=== PATIENT | male | born 1940 | race Caucasian/White ===

== ENCOUNTER 2016-07-30 17:04 | Observation (INO) | payer MEDICARE, OTHER ==
[~2016-07-30] VITALS: Ht 182.9 cm; Wt 86.0 kg
[~2016-07-30 17:04] MED LIST: ASPI81 PO; ATOR20TA42 PO; METO50TA PO; WARF6 PO
[2016-07-30 17:05] VITALS: BP 177/84; PULSE 78; RESP 20; TEMP 97.3; O2SAT 95
[2016-07-30] MEDS ORDERED: CO Q100C9 (17:26)
[2016-07-30] MEDS ORDERED: ASPI81CH CHEW (17:26)
[2016-07-30] MEDS ORDERED: PLAV75TA29 PO (17:26)
[2016-07-30] MEDS ORDERED: LIPI20TA PO (17:26)
[2016-07-30] MEDS ORDERED: TAMS5CAP PO (17:26)
[2016-07-30] MEDS ORDERED: RAMI10CA PO (17:26)
--- NOTE | 2016-07-30 18:02 | PD ---
HPI Chief Complaint: Medical Clearance Time Seen by Provider: 17:58 Travel History International Travel<30 days: No Contact w/Intl Traveler<30days: No Traveled to known affect area: No History of Present Illness HPI Patient is a 76-year-old male sent by his shipping hand to emergency department for evaluation for possible pacemaker placement patient is wearing a Holter monitor, per the report it showing a complete AV block. Patient has no chest pain, shortness of breath, headache, nausea, diaphoresis, abdominal pain. Patient states he feels well and was planning on going to the [facility] Patient's shipping hand is Dr. Pendleton, his primary doctor is Dr. Angus Cedeno. His past medical history significant for coronary artery disease, bypass surgery , atrial fibrillation, hypertension, TIA 2 weeks ago. PFSH Past Medical History Hx Anticoagulant Therapy: Yes Arthritis: Yes (MILD LOWER BACK) Blood Disorders: No Heart Rhythm Problems: Yes Cancer: No Cardiovascular Problems: Yes High Cholesterol: Yes Chest Pain: No Congestive Heart Failure: No Cerebrovascular Accident: Yes Endocrine: No Headaches: No Hypertension: Yes Immune Disorder: No Musculoskeletal: No Neurologic: No Psychiatric: No Respiratory: No Migraines: No Seizures: No Past Surgical History Abdominal Surgery: No Cardiac Surgery: No Ear Surgery: No Endocrine Surgery: No Eye Surgery: No Genitourinary Surgery: No Oral Surgery: No Thoracic Surgery: No Social History Alcohol Use: No Tobacco Use: No Substance Use: No Allergies-Medications (Allergen,Severity, Reaction): Coded Allergies: Celebrex (Verified Allergy, Severe, Rash, 07/30/16) Reported Meds & Prescriptions Reported Meds & Active Scripts Active Reported Co Q 10 (Coenzyme Q10 (Ubidecarenone)) 100 Mg Cap Flomax (Tamsulosin HCl) 0.4 Mg Cap 0.4 Mg PO HS Ramipril 10 Mg Cap 10 Mg PO DAILY Lipitor (Atorvastatin Calcium) 20 Mg Tab 20 Mg PO HS Aspirin 81 Mg Chew 81 Mg CHEW DAILY Plavix (Clopidogrel Bisulfate) 75 Mg Tab 75 Mg PO DAILY Review of Systems Except as stated in HPI: all other systems reviewed are Neg Physical Exam Narrative GENERAL: Well-developed, well-nourished, alert elderly gentleman. Resting comfortably in no acute distress. Holter monitor on. SKIN: Warm and dry. HEAD: Atraumatic. Normocephalic. EYES: Pupils equal and round. No scleral icterus. No injection or drainage. ENT: No nasal bleeding or discharge. Mucous membranes pink and moist. NECK: Trachea midline. No JVD. CARDIOVASCULAR: Regular rate and rhythm. No murmur appreciated. RESPIRATORY: No accessory muscle use. Clear to auscultation. Breath sounds equal bilaterally. GASTROINTESTINAL: Abdomen soft, non-tender, nondistended. Hepatic and splenic margins not palpable. MUSCULOSKELETAL: No obvious deformities. No clubbing. No cyanosis. No edema. NEUROLOGICAL: Awake and alert. No obvious cranial nerve deficits. Motor grossly within normal limits. Normal speech. PSYCHIATRIC: Appropriate mood and affect; insight and judgment normal. Data Data Last Documented VS Vital Signs Date Time Temp Pulse Resp B/P Pulse Ox O2 Delivery O2 Flow Rate FiO2 07/30/16 17:05 97.3 78 20 177/84 95 Room Air Orders Electrocardiogram (07/30/16 17:30) Ckmb (Isoenzyme) Profile (07/30/16 17:30) Complete Blood Count With Diff (07/30/16 17:30) Comprehensive Metabolic Panel (07/30/16 17:30) Magnesium (Mg) (07/30/16 17:30) Prothrombin Time / Inr (Pt) (07/30/16 17:30) Act Partial Throm Time (Ptt) (07/30/16 17:30) Troponin I (07/30/16 17:30) CKMB (07/30/16 17:44) CKMB% (07/30/16 17:44) Labs Laboratory Tests Test 07/30/16 17:44 White Blood Count 6.3 TH/MM3 Red Blood Count 3.88 MIL/MM3 Hemoglobin 12.2 GM/DL Hematocrit 36.0 % Mean Corpuscular Volume 92.8 FL Mean Corpuscular Hemoglobin 31.3 PG Mean Corpuscular Hemoglobin 33.8 % Concent Red Cell Distribution Width 14.1 % Platelet Count 125 TH/MM3 Mean Platelet Volume 9.5 FL Neutrophils (%) (Auto) 77.9 % Lymphocytes (%) (Auto) 10.4 % Monocytes (%) (Auto) 10.0 % Eosinophils (%) (Auto) 1.6 % Basophils (%) (Auto) 0.1 % Neutrophils # (Auto) 4.9 TH/MM3 Lymphocytes # (Auto) 0.7 TH/MM3 Monocytes # (Auto) 0.6 TH/MM3 Eosinophils # (Auto) 0.1 TH/MM3 Basophils # (Auto) 0.0 TH/MM3 CBC Comment DIFF FINAL Differential Comment Prothrombin Time 10.8 SEC Prothromb Time International 1.0 RATIO Ratio Activated Partial 22.3 SEC Thromboplast Time Sodium Level 138 MEQ/L Potassium Level 4.0 MEQ/L Chloride Level 105 MEQ/L Carbon Dioxide Level 25.0 MEQ/L Anion Gap 8 MEQ/L Blood Urea Nitrogen 16 MG/DL Creatinine 1.24 MG/DL Estimat Glomerular Filtration 57 ML/MIN Rate Random Glucose 104 MG/DL Calcium Level 8.4 MG/DL Magnesium Level 2.0 MG/DL Total Bilirubin 0.7 MG/DL Aspartate Amino Transf 11 U/L (AST/SGOT) Alanine Aminotransferase 19 U/L (ALT/SGPT) Alkaline Phosphatase 76 U/L Total Creatine Kinase 106 U/L Creatine Kinase MB 2.0 NG/ML Troponin I LESS THAN 0.02 NG/ML Total Protein 6.8 GM/DL Albumin 3.6 GM/DL MDM Medical Decision Making Medical Screen Exam Complete: Yes Emergency Medical Condition: Yes Interpretation(s) Vital Signs Date Time Temp Pulse Resp B/P Pulse Ox O2 Delivery O2 Flow Rate FiO2 07/30/16 17:05 97.3 78 20 177/84 95 Room Air Differential Diagnosis Cardiac arrhythmia versus electrolyte abnormality versus NSTEMI versus other Narrative Course Patient is a 76-year-old gentleman sent by his shipping hand to the emergency department after an arrhythmia was noted on Holter monitor. Labs and imaging ordered and pending. Workup initiated in triage. Care of patient will be transferred to provider when medical bed is available. Jessica French Jul 30, 2016 18:02
[2016-07-30 18:19] LABS: AUTOMATED NEUTROPHIL # 4.9 TH/MM3 (1.8-7.7); BASOPHIL % 0.1 % (0.0-2.0); EOSINOPHIL # 0.1 TH/MM3 (0-0.4); EOSINOPHIL % 1.6 % (0.0-4.0); HEMO FLAGS DIFF FINAL; LYMPH % 10.4 % (9.0-44.0); LYMPHOCYTE # 0.7 TH/MM3 (1.0-4.8); MEAN CELL VOLUME 92.8 FL (80.0-100.0); MEAN CORPUSCULAR HEMOGLOBIN 31.3 PG (27.0-34.0); MEAN CORPUSCULAR HGB CONC 33.8 % (32.0-36.0); NEUT % 77.9 % (16.0-70.0); PLATELET COUNT 125 TH/MM3 (150-450); RED BLOOD COUNT 3.88 MIL/MM3 (4.50-5.90); RED CELL DISTRIBUTION WIDTH 14.1 % (11.6-17.2); WHITE BLOOD COUNT 6.3 TH/MM3 (4.0-11.0)
[2016-07-30 18:43] LABS: ANION GAP 8 MEQ/L (5-15); AST (GOT) 11 U/L (15-37); BLOOD UREA NITROGEN 16 MG/DL (7-18); CHLORIDE 105 MEQ/L (98-107); GLOMERULAR FILTRATION RATE 57 ML/MIN (>89); SODIUM (NA) 138 MEQ/L (136-145)
[2016-07-30 18:48] LABS: ALKALINE PHOSPHATASE 76 U/L (45-117); ALT (GPT) 19 U/L (12-78); CREATINE KINASE 106 U/L (39-308); TOTAL BILIRUBIN ADULT 0.7 MG/DL (0.2-1.0)
[2016-07-30 18:51] LABS: APTT (PATIENT) 22.3 SEC (24.3-30.1); PROTHROMBIN TIME - PATIENT 10.8 SEC (9.8-11.6)
--- NOTE | 2016-07-30 20:12 | PD ---
Physical Exam Narrative The patient was initially evaluated in triage and brought back to a medical bed when he became available. See mid-level note for further details. Data Data Last Documented VS Vital Signs Date Time Temp Pulse Resp B/P Pulse Ox O2 Delivery O2 Flow Rate FiO2 07/30/16 17:05 97.3 78 20 177/84 95 Room Air Orders Electrocardiogram (07/30/16 17:30) Ckmb (Isoenzyme) Profile (07/30/16 17:30) Complete Blood Count With Diff (07/30/16 17:30) Comprehensive Metabolic Panel (07/30/16 17:30) Magnesium (Mg) (07/30/16 17:30) Prothrombin Time / Inr (Pt) (07/30/16 17:30) Act Partial Throm Time (Ptt) (07/30/16 17:30) Troponin I (07/30/16 17:30) CKMB (07/30/16 17:44) CKMB% (07/30/16 17:44) Labs Laboratory Tests Test 07/30/16 17:44 White Blood Count 6.3 TH/MM3 Red Blood Count 3.88 MIL/MM3 Hemoglobin 12.2 GM/DL Hematocrit 36.0 % Mean Corpuscular Volume 92.8 FL Mean Corpuscular Hemoglobin 31.3 PG Mean Corpuscular Hemoglobin 33.8 % Concent Red Cell Distribution Width 14.1 % Platelet Count 125 TH/MM3 Mean Platelet Volume 9.5 FL Neutrophils (%) (Auto) 77.9 % Lymphocytes (%) (Auto) 10.4 % Monocytes (%) (Auto) 10.0 % Eosinophils (%) (Auto) 1.6 % Basophils (%) (Auto) 0.1 % Neutrophils # (Auto) 4.9 TH/MM3 Lymphocytes # (Auto) 0.7 TH/MM3 Monocytes # (Auto) 0.6 TH/MM3 Eosinophils # (Auto) 0.1 TH/MM3 Basophils # (Auto) 0.0 TH/MM3 CBC Comment DIFF FINAL Differential Comment Prothrombin Time 10.8 SEC Prothromb Time International 1.0 RATIO Ratio Activated Partial 22.3 SEC Thromboplast Time Sodium Level 138 MEQ/L Potassium Level 4.0 MEQ/L Chloride Level 105 MEQ/L Carbon Dioxide Level 25.0 MEQ/L Anion Gap 8 MEQ/L Blood Urea Nitrogen 16 MG/DL Creatinine 1.24 MG/DL Estimat Glomerular Filtration 57 ML/MIN Rate Random Glucose 104 MG/DL Calcium Level 8.4 MG/DL Magnesium Level 2.0 MG/DL Total Bilirubin 0.7 MG/DL Aspartate Amino Transf 11 U/L (AST/SGOT) Alanine Aminotransferase 19 U/L (ALT/SGPT) Alkaline Phosphatase 76 U/L Total Creatine Kinase 106 U/L Creatine Kinase MB 2.0 NG/ML Troponin I LESS THAN 0.02 NG/ML Total Protein 6.8 GM/DL Albumin 3.6 GM/DL [facility] Supervised Visit with LIAM: Yes Narrative Course I, Dr. Alexandra, have reviewed the advance practice practitioner's documentation and am in agreement, met with the patient face to face, made the diagnosis, and the medical decision making was done by me. See her note for further details. Briefly this is a 76-year-old male who was sent in by his eeg tech for admission for possible pacemaker placement. The patient had a CVA/TIA a couple weeks ago with left-sided weakness/numbness. He was placed on a Holter monitor yesterday to evaluate for possible dysrhythmia. Apparently he had an event in the middle of the night that showed possible AV block. He was contacted by his eeg tech today to present to the hospital for admission. He is completely symptomatic. No chest pain or dyspnea. On physical exam he is awake and alert and resting comfortably. Heart has a regular rate and rhythm. EKG shows sinus rhythm with a rate of 70. Normal intervals. CBC is essentially unremarkable. CMP is unremarkable. Cardiac enzymes are negative. His eeg tech is Dr. Lazo. He will be admitted for overnight observation for telemetry monitoring and electrophysiology consultation. Diagnosis Primary Impression: Cardiac abnormality Admitting Information Admitting Physician Requests: Observation Dmitriy Alexanrda MD Jul 30, 2016 20:12
[2016-07-30] MEDS ORDERED: NALOXONE HCL 0.4 MG/ML AMP IV PRN (20:30)
[2016-07-30] MEDS ORDERED: SODIUM CHLORIDE 0.9% FLUSH 5 ML FLUSH FLUSH PRN (20:30)
[2016-07-30] MEDS: SODIUM CHLORIDE 0.9% FLUSH 5 ML FLUSH FLUSH SCH (21:00)
[2016-07-30 21:17] VITALS: BP 172/85; PULSE 84; RESP 18; O2SAT 98
[2016-07-30 23:35] VITALS: BP 140/78; PULSE 86; RESP 18; TEMP 97.9; O2SAT 94
--- NOTE | 2016-07-31 01:05 | HHI.HP ---
[facility] Service [facility] Primary Care Physician Angus Cedeno MD Admission Diagnosis possible dysrhythmia Diagnoses: (1) Cardiac abnormality (2) Arrhythmia (3) Thrombocytopenia (4) Anemia Chief Complaint: Abnormal heart rhythm noted on Holter monitor Travel History International Travel<30 Days: No Contact w/Intl Traveler <30 Da: No Traveled to Known Affected Are: No History of Present Illness Mr. Mattson is a 76 year old male patient of coater helper Dr. Ordaz who sent the patient here to the emergency department on 07/30/2016 for possible pacemaker placement. The patient has a history of coronary artery disease with bypass graft surgery, atrial fibrillation, hypertension, and TIA about 2 weeks ago who had a Holter monitor placed 24hrs ago that showed a complete AV block. He was in normal sinus rhythm in the emergency room. The patient reports he had a CVA treated at [facility] in [place] and in follow-up with his coater helper as an outpatient, he will have a Holter monitor placed to assess structural and functional abilities of the heart. The patient reports that the Holter monitor employees called the coater helper and the coater helper advised him to come to the hospital because of the rhythms seen. Since being in the hospital, he's had no cardiac rhythm problems. Of note, the patient does recall the leads from the Holter monitor falling off twice during the night when the arrhythmia was seen. The arrhythmia was seen overnight between 07/29 and 07/30/2016. . Review of Systems Except as stated in HPI: all other systems reviewed are Neg Past Family Social History Past Medical History Mild lower back arthritis Atrial fibrillation Hyperlipidemia CVA Hypertension . Past Surgical History CABG x 4 05/10/2010 [address]. Aranda Reported Medications Reported Meds & Active Scripts Active Reported Co Q 10 (Coenzyme Q10 (Ubidecarenone)) 100 Mg Cap Flomax (Tamsulosin HCl) 0.4 Mg Cap 0.4 Mg PO HS Ramipril 10 Mg Cap 10 Mg PO DAILY Lipitor (Atorvastatin Calcium) 20 Mg Tab 20 Mg PO HS Aspirin 81 Mg Chew 81 Mg CHEW DAILY Plavix (Clopidogrel Bisulfate) 75 Mg Tab 75 Mg PO DAILY . Allergies: Coded Allergies: Celebrex (Verified Allergy, Severe, Rash, 07/30/16) Active Ordered Medications Current Medications IV Flush (NS Flush) 2 ml UNSCH PRN FLUSH FLUSH AFTER USING IV ACCESS; Start 07/30/16 at 20:30 IV Flush (NS Flush) 2 ml BID FLUSH ; Start 07/30/16 at 21:00 Naloxone HCl (Narcan Inj) 0.4 mg UNSCH PRN IV SEE LABEL COMMENTS; Start at 20:30 . Family History CVA, hypertension in parents Social History Alcohol: social alcohol use Tobacco: denies Illicit Drugs: denies Physical Exam Vital Signs Vital Signs Date Time Temp Pulse Resp B/P Pulse Ox O2 Delivery O2 Flow Rate FiO2 07/30/16 23:35 97.9 86 18 140/78 94 07/30/16 21:17 84 18 172/85 98 Room Air 07/30/16 17:05 97.3 78 20 177/84 95 Room Air Physical Exam GENERAL: This is a well-nourished, well-developed patient, in no apparent distress. Very pleasant gentleman with his 2 daughters at the bedside. SKIN: No rashes, ecchymoses or lesions. Cool and dry. HEAD: Atraumatic. Normocephalic. EYES: No scleral icterus. No injection or drainage. ENT: Nose without bleeding, purulent drainage. NECK: Trachea midline. No JVD or lymphadenopathy. CARDIOVASCULAR: Regular rate and rhythm without murmurs, gallops, or rubs. RESPIRATORY: Clear to auscultation. Breath sounds equal bilaterally. No wheezes , rales, or rhonchi. GASTROINTESTINAL: Abdomen soft, non-tender, nondistended. No guarding. MUSCULOSKELETAL: Extremities without clubbing, cyanosis, or edema. No calf tenderness. NEUROLOGICAL: Awake and alert. Motor and sensory grossly within normal limits. Normal speech. . Laboratory Laboratory Tests Test 07/30/16 17:44 White Blood Count 6.3 Red Blood Count 3.88 Hemoglobin 12.2 Hematocrit 36.0 Mean Corpuscular Volume 92.8 Mean Corpuscular Hemoglobin 31.3 Mean Corpuscular Hemoglobin 33.8 Concent Red Cell Distribution Width 14.1 Platelet Count 125 Mean Platelet Volume 9.5 Neutrophils (%) (Auto) 77.9 Lymphocytes (%) (Auto) 10.4 Monocytes (%) (Auto) 10.0 Eosinophils (%) (Auto) 1.6 Basophils (%) (Auto) 0.1 Neutrophils # (Auto) 4.9 Lymphocytes # (Auto) 0.7 Monocytes # (Auto) 0.6 Eosinophils # (Auto) 0.1 Basophils # (Auto) 0.0 CBC Comment DIFF FINAL Differential Comment Prothrombin Time 10.8 Prothromb Time International 1.0 Ratio Activated Partial 22.3 Thromboplast Time Sodium Level 138 Potassium Level 4.0 Chloride Level 105 Carbon Dioxide Level 25.0 Anion Gap 8 Blood Urea Nitrogen 16 Creatinine 1.24 Estimat Glomerular Filtration 57 Rate Random Glucose 104 Calcium Level 8.4 Magnesium Level 2.0 Total Bilirubin 0.7 Aspartate Amino Transf 11 (AST/SGOT) Alanine Aminotransferase 19 (ALT/SGPT) Alkaline Phosphatase 76 Total Creatine Kinase 106 Creatine Kinase MB 2.0 Troponin I LESS THAN 0.02 Total Protein 6.8 Albumin 3.6 Result Diagram: 07/30/16 1744 07/30/16 1744 Assessment and Plan Problem List: (1) Cardiac abnormality ICD Code: Q24.9 Status: Acute (2) Arrhythmia ICD Code: I49.9 Status: Acute (3) Anemia ICD Code: D64.9 Status: Acute (4) Thrombocytopenia ICD Code: D69.6 Status: Acute Assessment and Plan Mr. Mattson is a 76 year old male patient of coater helper Dr. Ordaz who sent the patient here to the emergency department on 07/30/2016 for possible pacemaker placement. The patient has a history of coronary artery disease with bypass graft surgery, atrial fibrillation, hypertension, and TIA about 2 weeks ago who had a Holter monitor that showed a complete AV block. He was in normal sinus rhythm in the emergency room. Cardiac arrhythmia - thought to be complete heart block -but the patient is not currently in heart block - Consult cardiology for possible pacemaker placement - Continuous cardiac telemetry to monitor for further arrhythmia - Vital signs every 4 hours - Monitor electrolytes for abnormalities Thrombocytopenia - Platelet count 125,000 - had a history of thrombocytopenia postop in 2009 but then platelets normalized - No platelet counts available in the electronic medical records since 07/04/10 when it was measured at 179,000 - Recheck CBC in a.m. and follow trends Mild anemia with hemoglobin 12.2, hematocrit 36.0, and RBC 3.88 - Uncertain if this is chronic, but it is certainly a very mild anemia - Will recheck CBC in a.m. and follow trends DVT prophylaxis - SCDs Written by Cinthya Sewell, acting as scribe for Dr. Baxter on 07/31/16 at 00:58. All or portions of this note were transcribed by scribe [Cinthya Sewell]. I, Dr. Noris Baxter personally performed the history, physical exam, and medical decision making; and confirmed the accuracy of the information in the transcribed note. Authenticated by Dr. Noris Baxter on 07/31/16 at 0058 Discussed Condition With ER physician, patient's daughters, and patient Problem Qualifiers (1) Arrhythmia: Qualified Code: I49.9 - Cardiac arrhythmia, unspecified cardiac arrhythmia type (2) Anemia: Cinthya Sewell Jul 31, 2016 01:05 Noris Baxter MD Jul 31, 2016 08:18
[2016-07-31 04:11] VITALS: PULSE 62
[2016-07-31 05:05] VITALS: BP 143/80; PULSE 71; RESP 18; TEMP 97.7; O2SAT 97
[2016-07-31 08:13] LABS: AUTOMATED NEUTROPHIL # 2.7 TH/MM3 (1.8-7.7); BASOPHIL % 0.2 % (0.0-2.0); EOSINOPHIL # 0.2 TH/MM3 (0-0.4); EOSINOPHIL % 3.3 % (0.0-4.0); HEMATOCRIT 34.8 % (39.0-51.0); HEMO FLAGS DIFF FINAL; LYMPHOCYTE # 1.2 TH/MM3 (1.0-4.8); MEAN CORPUSCULAR HGB CONC 33.6 % (32.0-36.0); MONO % 14.2 % (0.0-8.0); NEUT % 57.3 % (16.0-70.0); PLATELET COUNT 132 TH/MM3 (150-450); RED BLOOD COUNT 3.78 MIL/MM3 (4.50-5.90); RED CELL DISTRIBUTION WIDTH 13.9 % (11.6-17.2); WHITE BLOOD COUNT 4.7 TH/MM3 (4.0-11.0)
[2016-07-31 08:42] VITALS: BP 153/82; PULSE 72; RESP 19; TEMP 98.5; O2SAT 95
[2016-07-31 08:43] LABS: BICARBONATE 26.9 MEQ/L (21.0-32.0); POTASSIUM 4.1 MEQ/L (3.5-5.1)
[2016-07-31] MEDS ORDERED: RAMIPRIL 5 MG CAP PO SCH (09:00)
[2016-07-31] MEDS ORDERED: CLOPIDOGREL 75 MG TAB PO SCH (09:00)
[2016-07-31] MEDS: SODIUM CHLORIDE 0.9% FLUSH 5 ML FLUSH FLUSH SCH (09:00)
[2016-07-31] MEDS ORDERED: ASPIRIN 81 MG CHEW TAB CHEW SCH (09:00)
--- NOTE | 2016-07-31 09:46 | HHI.PR ---
Subjective Remarks Follow up for possible AV block. The patient reports feeling well today. Denies any chest pain, shortness of breath, lightheadedness, dizziness. He has been ambulating without difficulty. He has no other medical complaints at this time. Denies any recent changes in medications other than starting Plavix 2 weeks ago. Awaiting cardiology evaluation for possible pacemaker placement. Objective Vitals Vital Signs Date Time Temp Pulse Resp B/P Pulse Ox O2 Delivery O2 Flow Rate FiO2 07/31/16 08:42 98.5 72 19 153/82 95 07/31/16 05:05 97.7 71 18 143/80 97 07/31/16 04:11 62 07/30/16 23:35 97.9 86 18 140/78 94 07/30/16 21:17 84 18 172/85 98 Room Air 07/30/16 17:05 97.3 78 20 177/84 95 Room Air Result Diagram: 07/31/16 0755 07/31/16 0755 Objective Remarks GENERAL: Well-nourished, well-developed pleasant elderly male patient in [facility]. SKIN: Warm and dry. No rash. HEENT: Normocephalic. Atraumatic. Pupils equal and round. No scleral icterus. No injection or drainage. Mucous membranes pink and moist. NECK: Supple. Trachea midline. CARDIOVASCULAR: Regular rate and rhythm. S1, S2 noted. No murmur appreciated. RESPIRATORY: No accessory muscle use. Clear to auscultation. Breath sounds equal bilaterally. GASTROINTESTINAL: Abdomen soft, non-tender, nondistended. Normoactive bowel sounds x4. MUSCULOSKELETAL: No obvious deformities. Extremities without clubbing, cyanosis , or edema. NEUROLOGICAL: Awake and alert. No obvious cranial nerve deficits. Motor grossly within normal limits. Normal speech. PSYCHIATRIC: Appropriate mood and affect; insight and judgment normal. Medications and IVs Current Medications Medications (Trade) Dose Ordered Sig/Harlan Route Start Time Stop Time Status Last Admin (NS Flush) 2 ml UNSCH PRN FLUSH 07/30/16 20:30 (NS Flush) 2 ml BID FLUSH 07/30/16 21:00 (Narcan Inj) 0.4 mg UNSCH PRN IV 07/30/16 20:30 (Aspirin Chew) 81 mg DAILY CHEW 07/31/16 09:00 (Lipitor) 20 mg HS PO 07/31/16 21:00 (Plavix) 75 mg DAILY PO 07/31/16 09:00 (Altace) 10 mg DAILY PO 07/31/16 09:00 (Flomax) 0.4 mg HS PO 07/31/16 21:00 A/P Problem List: (1) Cardiac abnormality ICD Code: Q24.9 Status: Acute (2) Arrhythmia ICD Code: I49.9 Status: Acute (3) Anemia ICD Code: D64.9 Status: Acute (4) Thrombocytopenia ICD Code: D69.6 Status: Acute Assessment and Plan 76 year old male patient of gunnery/ordnance officer Dr. Ordaz who sent the patient here to the ED on 07/30/2016 for possible pacemaker placement. The patient has a history of CAD s/p CABG, atrial fibrillation, HTN, and TIA about 2 weeks ago who had a Holter monitor that showed a complete AV block. He was in NSR in the ED. Cardiac arrhythmia - thought to be complete heart block -but the patient is not currently in heart block - Continuous cardiac telemetry to monitor for further arrhythmia - Telemetry reviewed, showed few episodes of transient possible 2nd degree Mobitz 2 block - Consult cardiology for possible pacemaker placement - consider full anticoagulation post cardiac procedure Thrombocytopenia - Platelet count 125,000 - had a history of thrombocytopenia postop in 2009 but then platelets normalized - No platelet counts available in the EMR since 07/04/10 when it was measured at 179,000 - Repeat CBC stable today with platelets 132K Mild anemia with hemoglobin 12.2, hematocrit 36.0, and RBC 3.88 - Uncertain if this is chronic, but it is certainly a very mild anemia - Repeat CBC with Hgb 11.7 - check iron studies in am - outpatient f/up Recent TIA: - continue patient's aspirin, Plavix, statin CAD s/p CABG: - chronic, continue patient's aspirin, plavix, statin, ramipril DVT prophylaxis - SCDs Written by Giovanna Puentes, acting as scribe for Dr. Sanders on 07/31/16 at 09:45. All or portions of this note were transcribed by scribe []. I, Dr. Dejuan Sanders personally performed the history, physical exam, and medical decision making; and confirmed the accuracy of the information in the transcribed note. Authenticated by Dr. Dejuan Sanders on 07/31/16 at 11:15. Discharge Planning 1755hrs: Patient was seen and evaluated by cardiology Dr. Ramirez, cleared for discharge. The patient wants to go home. Discharge patient to home Condition on discharge: Improved Heart Healthy Diet as tolerated Ad Rosalia activity Rx written: no change to meds Follow-up with primary care physician Dr. Cedeno within 1 week Problem Qualifiers (1) Arrhythmia: Qualified Code: I49.9 - Cardiac arrhythmia, unspecified cardiac arrhythmia type (2) Anemia: Giovanna Puentes PA-C Jul 31, 2016 09:46 Dejuan Sanders MD Jul 31, 2016 11:15
[2016-07-31] MEDS ORDERED: MAGNESIUM HYDROXIDE SUSP 30 ML CUP PO PRN (11:30)
[2016-07-31] MEDS ORDERED: ALUMINUM/MAGNESIUM/SIMETH 30 ML CUP PO PRN (11:30)
[2016-07-31] MEDS ORDERED: DOCUSATE SODIUM 100 MG CAP PO PRN (11:30)
[2016-07-31] MEDS ORDERED: ACETAMINOPHEN 325 MG TAB PO PRN (11:30)
[2016-07-31] MEDS ORDERED: DOCUSATE SODIUM 50 MG/SENNA 8.6 MG TAB PO PRN (11:30)
[2016-07-31] MEDS ORDERED: ONDANSETRON HCL 4 MG/2 ML VIAL IV PRN (11:30)
[2016-07-31] MEDS ORDERED: CALCIUM CARBONATE 500 MG CHEWABLE TAB CHEW PRN (11:30)
[2016-07-31 11:37] VITALS: BP 168/84; PULSE 79; RESP 19; TEMP 98.5; O2SAT 96
--- NOTE | 2016-07-31 13:05 | EKG ---
Date Performed: 07/30/2016 Time Performed: 17:40:03 PTAGE: 76 years EKG: Sinus rhythm POSSIBLE LEFT ATRIAL ENLARGEMENT BORDERLINE ECG PREVIOUS TRACING : 07/04/2010 08.43 Compared to previous tracing, sinus rhythm has replaced atr ial fibrillation. DOCTOR: Mino Hernandez Interpretating Date/Time 07/31/2016 13:04:28
[2016-07-31 16:16] VITALS: BP 172/92; PULSE 80; RESP 18; O2SAT 98
--- NOTE | 2016-07-31 17:55 | HHI.DCPOC ---
Discharge Care Plan Diagnosis: (1) History of TIA (transient ischemic attack) (2) Thrombocytopenia (3) Anemia (4) CAD (coronary artery disease) (5) Hx of CABG Goals to Promote Your Health * To prevent worsening of your condition and complications * To maintain your health at the optimal level Directions to Meet Your Goals Take your medications as prescribed Follow your dietary instruction Follow activity as directed Keep your appointments as scheduled Take your immunizations and boosters as scheduled If your symptoms worsen call your PCP, if no PCP go to Urgent Care Center or Emergency Room Smoking is Dangerous to Your Health. Avoid second hand smoke Call the 24-hour hour crisis hotline for domestic abuse at Giovanna Puentes PA-C Jul 31, 2016 5:55 pm
--- NOTE | 2016-07-31 19:09 | MB ---
cc: TJ DAVIS MD, KIM A. M.D. DATE OF CONSULTATION 07/31/16 REASON FOR CONSULTATION AV block. HISTORY OF PRESENT ILLNESS Mr. Mattson is a 76-year-old gentleman history of CVA and palpitation, thrombocytopenia, anemia, followed by Dr. Ordaz who was referred to the emergency room due to AV block. The episode happened at 7:00 in the morning. The patient was admitted yesterday night for evaluation. I was consulted for further evaluation and management. The chart was reviewed. The patient was evaluated. I did have a long conversation with he and his . I reviewed the record with Dr. Washington as well as Cecilia Banegas, the nurse practitioner for Dr. Ordaz. ALLERGIES CELEBREX. SOCIAL HISTORY The gentleman denies smoking. FAMILY HISTORY Noncontributory to his current medical condition. MEDICATIONS 1. Flomax. 2. Altace. 3. Lipitor. 4. Aspirin. 5. Plavix. REVIEW OF SYSTEMS Currently referred no chest pain, no chest discomfort, no syncope. No shortness of breath. No fever. PHYSICAL EXAMINATION GENERAL: Alert, fully oriented. VITAL SIGNS: His blood pressure on Hospitalization 140/78, currently blood pressure is high 172/92, pulse 80, respiratory rate 18 LUNGS: Ventilated. CARDIOVASCULAR: S1-S2, no gallop or murmur. ABDOMEN: Soft. No mass. No bruit. EXTREMITIES: No edema. NEUROLOGIC: There is no gross motor and sensory deficit. CARDIOLOGY STUDIES Electrocardiogram shows sinus rhythm, poor R-wave progression, some ST and T-wave changes. LABORATORY DATA Hemoglobin is 11.7, white blood cell 4.7, potassium 4.1, creatinine 1.05, troponin less than 0.02. ASSESSMENT AND RECOMMENDATIONS Mr. Mattson is asymptomatic. The episode happened yesterday at 7:08 a.m. The patient said he was active doing things and no symptom. No shortness of breath. No dizziness only syncope. The monitor was placed mainly for arrhythmia evaluation. Patient is close to being 24 hours in the hospital, but there is no pauses, no AV block observed on telemetry. He is on no negative chronotropic medication. He has an event recorder for a month. At this point, my recommendation is discharge home. Continue with the monitoring. If patient experiences any symptomatic bradycardia, then pacing support will be considered. For now observation. Case extensively discussed with he and his . Blood pressure is high because medication was not given yet today. His blood pressure medication reinitiated. I will follow him on a p.r.n. basis. Follow up with Dr. Ordaz. MD DANIKA Sifuentes/ /6:02 PM /7:01 PM
[2016-07-31] MEDS ORDERED: TAMSULOSIN HCL 0.4 MG CAP PO SCH (21:00)
[2016-07-31] MEDS ORDERED: ATORVASTATIN 20 MG TAB PO SCH (21:00)
== END 2016-07-31 19:06 | disposition home or self-care (01) ==
LOC: NEPA 17:04 → NEDA 20:31 → NEPHCDU 22:08 → HCIS 07-31 16:57
PROVIDERS: ADMIT Internal Medicine; ATTEND Internal Medicine
DX: I49.9 Cardiac arrhythmia, unspecified (principal); I48.91 Unspecified atrial fibrillation; E78.00 Pure hypercholesterolemia, unspecified; I10 Essential (primary) hypertension; I69.854 Hemiplegia and hemiparesis following other cerebrovascular disease affecting left non-dominant side; D64.9 Anemia, unspecified; D69.6 Thrombocytopenia, unspecified; I25.10 Atherosclerotic heart disease of native coronary artery without angina pectoris; Z95.1 Presence of aortocoronary bypass graft; Z79.01 Long term (current) use of anticoagulants; Z79.82 Long term (current) use of aspirin
CPT/HCPCS: 80048; 80053; 82550; 82552; 83735; 84484; 85025; 85610; 85730; 93005; 99285; G0378